=== PATIENT | female | born 1990 | race Caucasian/White ===

== ENCOUNTER 2016-09-27 12:29 | Emergency (ER) | payer OTHER ==
[2016-09-27 12:32] VITALS: BMI 22.1
--- NOTE | 2016-09-27 13:11 | PDOC ---
Attending Attestation - Resident Resident Name: Codie Schneider - ED Attending Attestation I have performed the following: I have examined & evaluated the patient, The case was reviewed & discussed with the resident, I agree w/resident's findings & plan, Exceptions are as noted - HPI HPI: 09/27/16 13:11 26y F hx of unclera cardiac history (had fu with peds cardiology when she was young) presents with L sided chest pain that is worse when she lifts her L arm, the pain also is worse when she takes a deep breath. Pt deenies any sob, hemoptysis, leg swelling, calf pain, coughing, EMERSON or worsening of CP on exertion. Pt also notes the pain seems worse when she is reclined. GENERAL: The patient is awake, alert, and fully oriented, Nontoxic - in no acute distress. HEAD: Normocephalic, atraumatic. EYES: extraocular movements intact, sclera anicteric, conjunctiva clear. ENT: Normal voice, Moist mucous membranes. NECK: Normal range of motion, supple LUNGS: Breath sounds equal, clear to auscultation bilaterally. No wheezes, no rhonchi, no rales. HEART: Regular rate and rhythm, normal S1 and S2 without murmur, rub or gallop. CHesT: Mild tenderness to L chest on palpation at the lateral insertion of pectorallis major ABDOMEN: Soft, nontender, normoactive bowel sounds. No guarding, no rebound. . No CVA tenderness EXTREMITIES: Normal range of motion, no edema. No clubbing or cyanosis. No cords, erythema, or tenderness. NEUROLOGICAL: No facial assymetry, Normal speech, PSYCH: Normal mood, normal affect. SKIN: Warm, Dry, normal turgor, consider MSK no signs of pericarditis via EKG will reach out to cardiology from [facility] for her cardiac history - Physicial Exam PE: 09/29/16 16:06 see above - Medical Decision Making 09/29/16 16:06 see above Heart Score/ECG Review - ECG Impressions Comment:: 09/27/16 15:11 Twelve-lead EKG was performed and reviewed by me. There is normal sinus rhythm with a normal rate. Rate of 67 The axis is normal. The intervals are normal. There is normal R wave progression There are no ST or T wave abnormalities. Impression: Normal twelve-lead EKG
--- NOTE | 2016-09-27 13:13 | PDOC ---
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 Patient states that her pain began 2 days ago and has gotten worse over that time she states that the pain is mostly on her left side and radiates down her left arm she states that it hurts to lift her left arm and causes her more chest pain. She states that her chest pain is reproducible with a big breath or palpation. 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 She is currently at the end of her menstrual cycle. Endorses palpitations. Denies fevers, chills, recent illness, shortness of breath, recent trauma, OCP use, nausea, vomiting, diarrhea, frequency, urgency and dysuria. Past History - Travel Traveled outside of the country in the last 30 days: No Close contact w/someone who was outside of country & ill: No - Past Medical History Allergies/Adverse Reactions: Allergies Allergy/AdvReac Type Severity Reaction Status Date / Time No Known Allergies Allergy Verified 09/27/16 12:32 Home Medications: Ambulatory Orders Oxycodone HCl/Acetaminophen [Percocet 5-325 mg Tablet] 1 tab PO Q6H PRN #10 tablet MDD 4 09/27/16 Cardiac Disorders: Yes (CHILDHOOD CARDIAC VESSEL ABNORMAL) Other medical history: [facility] 09/23/2016 Comment:: 09/27/16 17:42 Hx of coronary AV fistula from the LAD to the main pulmonary artery - Psycho/Social/Smoking Cessation Hx Anxiety: No Suicidal Ideation: No Smoking History: Never smoked Hx Alcohol Use: Yes (SOCIAL) Drug/Substance Use Hx: No Substance Use Type: None Review of Systems - Review of Systems Able to Perform ROS?: No Is the patient limited Kyrgyz proficient: No Constitutional: No: Chills, Fever, Malaise, Weakness Respiratory: No: Cough, Shortness of Breath, Wheezing Cardiac (ROS): Yes: Chest Pain, Palpitations. No: Lightheadedness, Syncope, Chest Tightness ABD/GI: No: Diarrhea, Nausea, Vomiting Musculoskeletal: Yes: Muscle Pain (L chest) All Other Systems: Reviewed and Negative *Physical Exam - Vital Signs Last Vital Signs Temp Pulse Resp BP Pulse Ox 98.0 F 91 H 20 132/93 97 09/27/16 12:29 09/27/16 12:29 09/27/16 12:29 09/27/16 12:29 09/27/16 12:29 - Physical Exam Comments: 09/27/16 15:10 GENERAL: Well developed, well nourished. Awake and alert. No acute distress. HEENT: Normocephalic, atraumatic. PERRLA, EOMI. No conjunctival pallor. Sclera are non- icteric. Moist mucous membranes. Oropharynx is clear. NECK: Supple. Full ROM. No JVD. Carotid pulses 2+ and symmetric, without bruits. No thyromegaly. No lymphadenopathy. CARDIOVASCULAR: TTP of the L chest wall. Reproducable pain with inspiration. Regular rate and rhythm. No murmurs, rubs, or gallops. Distal pulses are 2+ and symmetric. PULMONARY: No evidence of respiratory distress. Lungs clear to auscultation bilaterally. No wheezing, rales or rhonchi. ABDOMINAL: Soft. Non-tender. Non-distended. No rebound or guarding. No organomegaly. Normoactive bowel sounds. MUSCULOSKELETAL Normal range of motion at all joints. No bony deformities or tenderness. No CVA tenderness. EXTREMITIES: No cyanosis. No clubbing. No edema. No calf tenderness. SKIN: Warm and dry. Normal capillary refill. No rashes. No jaundice. NEUROLOGICAL: Alert, awake, appropriate. Cranial nerves 2-12 intact. No deficits to light touch and temperature in face, upper extremities and lower extremities. No motor deficits in the in face, upper extremities and lower extremities. Normoreflexic in the upper and lower extremities. Normal speech. Toes are down- going bilaterally. Gait is normal without ataxia. PSYCHIATRIC: Cooperative. Good eye contact. Appropriate mood and affect. ED Treatment Course - LABORATORY CBC & Chemistry Diagram: 09/27/16 13:30 09/27/16 13:30 Medical Decision Making - Medical Decision Making 09/27/16 14:47 Pt. is a 26 y/o female with PMH of AV fistula of the LAD and pulmonary artery, who presents to the ED c/o left sided chest pain. Will r/o ACS at this time. Other possible dx includes pneumonia, costrochondritis Will obtain old medical records from her manager building in [facility]. Pt has no current manager building 1. CBC, CMP, Cardiac Labs, UA, Upregnancy 2. EKG, CXR 3. Torodol 4. Re-evaluate 09/27/16 16:40 Medical records received from [facility]. 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 States that fistulas are slow changing and probably not the source of her pain. As long as trop is negative, pt can go home with outpatient follow up. EKG: NSR rate 77 normal intervals, axis. No acute ST-T wave changes. Pt. still c/o pain. Will give morphine at this time. 09/27/16 17:06 Trop is negative. Pt. reporting relief of pain with morphine. Will discharge home with percocets and cardiology follow up *DC/Admit/Observation/Transfer Diagnosis at time of Disposition: Acute costochondritis - Discharge Dispostion Disposition: HOME Admit: No - Prescriptions Prescriptions: Oxycodone HCl/Acetaminophen [Percocet 5-325 mg Tablet] 1 tab PO Q6H PRN #10 tablet MDD 4 PRN Reason: Pain - Referrals Referrals: Kira Pierce MD [Primary Care Provider] - Minesh Leong MD [Staff Physician] - - Patient Instructions Printed Discharge Instructions: DI for Atypical Chest Pain Additional Instructions: Your testing was normal today. Her EKG was normal. This is most likely a strained muscle in her chest wall. Take ibuprofen 600 mg every 8 hours for one week. This medication with food. Your also prescribed Percocet. Take this medication as needed for breakthrough pain. Do not drive after taking this medication as it may make you sleepy. Follow up with the cardiology consult provided in your discharge packet within the week. Follow up with her primary care doctor within the week. Return to the emergency department if you have worsening chest pain, shortness of breath, palpitations, fevers, chills or any changes in your symptoms. - Post Discharge Activity Work/School Note: Back to Work
[2016-09-27] MEDS ORDERED: SODIUM CHLORIDE 1,000 ML IV STA (13:15)
[2016-09-27 13:40] LABS: BASOPHIL 0.3 % (0-2.0); EOSINOPHIL 0.4 % (0-4.5); MCH 29.7 pg (25.7-33.7); MCHC 33.4 g/dl (32.0-36.0); MEAN CELL VOLUME 88.8 fl (80-96); MEAN PLT VOLUME 7.8 fl (7.5-11.1); NEUTROPHILS 69.7 % (42.8-82.8); PLATELET COUNT 307 K/MM3 (134-434); RDW 14.3 % (11.6-15.6); WHITE BLOOD COUNT 7.3 K/mm3 (4.0-10.0)
[2016-09-27 14:09] LABS: ALBUMIN 4.3 g/dl (3.4-5.0); ANION GAP 5 (8-16); BILIRUBIN,TOTAL 1.2 mg/dL (0.2-1.0); CALCIUM 9.2 mg/dL (8.5-10.1); CO2 32 mmol/L (21-32); CREATININE 0.6 mg/dL (0.55-1.02); GLUCOSE,RANDOM 87 mg/dL (74-106); SGPT/ALT 23 U/L (12-78); TOT PROT 7.7 g/dl (6.4-8.2)
[2016-09-27 14:10] LABS: ALK PHOS 64 U/L (45-117)
[2016-09-27 14:15] LABS: MAGNESIUM 2.4 mg/dL (1.8-2.4); SGOT/AST 18 U/L (15-37)
[2016-09-27 14:31] LABS: URINE APPEARANCE CLEAR; URINE BILIRUBIN NEGATIVE (NEGATIVE); URINE BLOOD NEGATIVE (NEGATIVE); URINE COLOR LTYELLOW; URINE GLUCOSE (UA) NEGATIVE (NEGATIVE); URINE KETONE NEGATIVE (NEGATIVE); URINE LEUK ESTERASE NEGATIVE (NEGATIVE); URINE NITRITE NEGATIVE (NEGATIVE); URINE PROTEIN NEGATIVE (NEGATIVE); URINE UROBILINOGEN NEGATIVE mg/dL (0.2-1.0)
[2016-09-27] MEDS ORDERED: KETOROLAC TROMETHAMINE 30 MG/1 ML VIAL IVPUSH ONE (15:18)
[2016-09-27] MEDS ORDERED: KETOROLAC TROMETHAMINE 60 MG/2 ML VIAL ONE (15:42)
[2016-09-27] MEDS ORDERED: morphine CARPU-JECT 2 MG/1 ML DISP.SYRIN IVPUSH ONE ×2 (16:34→17:44)
[2016-09-27] MEDS ORDERED: morphine CARPU-JECT 2 MG/1 ML DISP.SYRIN ONE ×2 (16:53→17:57)
[2016-09-27 17:38] LABS: CPK 97 IU/L (26-192); TROPONIN I < 0.02 ng/ml (0.00-0.05)
[2016-09-27 19:46] VITALS: BP 128/82; PULSE 78; TEMP 98.8
--- NOTE | 2016-10-01 21:52 | EKG ---
Test Reason : Blood Pressure : / mmHG Vent. Rate : 067 BPM Atrial Rate : 067 BPM P-R Int : 118 ms QRS Dur : 086 ms QT Int : 384 ms P-R-T Axes : 045 060 039 degrees QTc Int : 405 ms NORMAL SINUS RHYTHM WITH SHORT OH NO PREVIOUS ECGS AVAILABLE Confirmed by ANA NEVES MD ([id number]) on 10/01/2016 9:51:52 PM Referred By: Confirmed By:ANA NEVES MD
== END 2016-09-27 19:00 | disposition home or self-care (01) ==
LOC: JER 12:29
DX: M94.0 Chondrocostal junction syndrome [Tietze] (principal)
CPT/HCPCS: 36415; 71020-TC; 80053; 81003; 83735; 84484; 84703; 85025; 93005; 93010; 99283-25

== ENCOUNTER 2018-04-22 12:08 | Emergency (ER) | payer SELFPAY ==
[2018-04-22 12:31] VITALS: BP 134/85; PULSE 118; TEMP 98.2; BMI 22.8
--- NOTE | 2018-04-22 13:03 | PDOC ---
History of Present Illness - General Chief Complaint: Cold Symptoms Stated Complaint: CHEST PAIN Time Seen by Provider: 04/22/18 12:32 - History of Present Illness Initial Comments: 04/22/18 12:59 28-year-old female with an underlying cardiac abnormality she is unsure of presents for evaluation of sinus congestion intermittent headache subjective fever and chest pain over the last few days which started after coughing episodes. Past History - Past Medical History Allergies/Adverse Reactions: Allergies Allergy/AdvReac Type Severity Reaction Status Date / Time No Known Allergies Allergy Verified 04/22/18 12:28 Home Medications: Ambulatory Orders Oxycodone HCl/Acetaminophen [Percocet 5-325 mg Tablet] 1 tab PO Q6H PRN #10 tablet MDD 4 09/27/16 Amox-Tr/K Cl [Augmentin - 875Mg Tablet] 1 tab PO BID #20 tablet 04/22/18 Budesonide [Rhinocort Allergy] 1 spray NS ONCE #1 spray.pump 04/22/18 Cardiac Disorders: Yes (CHILDHOOD CARDIAC VESSEL ABNORMAL) COPD: No - Immunization History Immunization Up to Date: Yes - Suicide/Smoking/Psychosocial Hx Smoking History: Never smoked Information on smoking cessation initiated: No Hx Alcohol Use: No Drug/Substance Use Hx: No Substance Use Type: None Review of Systems - Review of Systems Constitutional: Yes: Fever HEENTM: Yes: Nose Congestion Respiratory: Yes: Cough Cardiac (ROS): Yes: See HPI, Chest Pain Neurological: Yes: Headache *Physical Exam - Vital Signs Last Vital Signs Temp Pulse Resp BP Pulse Ox 98.2 F 118 H 16 134/85 99 04/22/18 12:28 04/22/18 12:28 04/22/18 12:28 04/22/18 12:28 04/22/18 12:28 - Physical Exam Comments: 04/22/18 13:01 HEAD: NC/AT tenderness over the frontal sinuses. EYES: Conjuntiva clear Ears: Canals and TM's normal NOSE: Clear discharge injected turbinates. THROAT: Moist mucous membrances, oral pharanx clear, uvula midline NECK: Supple without adenopathy CARDIAC: S1 S2 LUNGS: CTA Full and Equal breath sounds ABDOMEN: Soft NT ND MS: Full ROM in all joints without edema NEUROLOGIC: No gross sensory or motor deficits, NVID SKIN: Normal color and temperature no lesions or rashes Moderate Sedation - Procedure Monitoring Vital Signs: Procedure Monitoring Vital Signs Temperature 98.2 F 04/22/18 12:28 Pulse Rate 118 H 04/22/18 12:28 Respiratory Rate 16 04/22/18 12:28 Blood Pressure 134/85 04/22/18 12:28 O2 Sat by Pulse Oximetry (%) 99 04/22/18 12:28 Medical Decision Making - Medical Decision Making 04/22/18 13:02 EKG was reviewed with emergency room attending. We'll treat for bacterial sinusitis have patient follow-up with ENT. *DC/Admit/Observation/Transfer Diagnosis at time of Disposition: Sinusitis - Discharge Dispostion Disposition: HOME Condition at time of disposition: Stable Decision to Admit order: No - Prescriptions Prescriptions: Amox-Tr/K Cl [Augmentin - 875Mg Tablet] 1 tab PO BID #20 tablet Budesonide [Rhinocort Allergy] 1 spray NS ONCE #1 spray.pump - Referrals Referrals: Michael Kim MD [Staff Physician] - - Patient Instructions Printed Discharge Instructions: DI for Sinusitis, Sinusitis Additional Instructions: Please use the nasal spray and antibiotics as directed. Please finish the entire course of the antibiotics. Return to the emergency room should symptoms worsen follow-up with ear nose and throat doctor in 1-2 days for further evaluation and treatment options. - Post Discharge Activity
--- NOTE | 2018-04-24 12:07 | EKG ---
Test Reason : Blood Pressure : / mmHG Vent. Rate : 110 BPM Atrial Rate : 110 BPM P-R Int : 130 ms QRS Dur : 082 ms QT Int : 316 ms P-R-T Axes : 055 047 025 degrees QTc Int : 427 ms SINUS TACHYCARDIA POSSIBLE LEFT ATRIAL ENLARGEMENT BORDERLINE ECG WHEN COMPARED WITH ECG OF 27-SEP-2016 12:39, VENT. RATE HAS INCREASED BY 43 BPM Confirmed by SAM HOROWITZ MD ([id number]) on 04/24/2018 12:07:15 PM Referred By: Confirmed By:SAM HOROWITZ MD
== END 2018-04-22 13:21 | disposition home or self-care (01) ==
LOC: JERFT 12:08
DX: J01.90 Acute sinusitis, unspecified (principal)
CPT/HCPCS: 93005; 93010; 99281-25

== ENCOUNTER 2019-02-09 19:48 | Emergency (ER) | payer SELFPAY ==
[2019-02-09 20:07] VITALS: BP 121/78; PULSE 96; TEMP 98; BMI 22.1
--- NOTE | 2019-02-09 20:45 | PDOC ---
History of Present Illness - General Chief Complaint: Cold Symptoms Stated Complaint: COUGHING/FEVER/HEADACHE Time Seen by Provider: 02/09/19 20:10 History Source: Patient Exam Limitations: No Limitations - History of Present Illness Initial Comments: 02/09/19 20:41 Patient is a 28-year-old female who presents to the ED with complaint of body aches, subjective fever, headache and URI symptoms for the last 6 days. She has been taking TheraFlu which has been helping with her fever. She took TheraFlu about 2 hours ago which has helped. She denies any neck pain. She denies any known sick contacts. She did not get a flu shot this year. The patient states that she has a history of heart problems but is unsure of what kind. Past History - Past Medical History Allergies/Adverse Reactions: Allergies Allergy/AdvReac Type Severity Reaction Status Date / Time No Known Allergies Allergy Verified 02/09/19 20:32 Home Medications: Ambulatory Orders NK [No Known Home Medication] 02/09/19 Cardiac Disorders: Yes (CHILDHOOD CARDIAC VESSEL ABNORMAL) COPD: No - Immunization History Immunization Up to Date: Yes - Psycho Social/Smoking Cessation Hx Smoking History: Never smoked Hx Alcohol Use: No Drug/Substance Use Hx: No Substance Use Type: None Review of Systems - Review of Systems Comments:: 02/09/19 20:41 - Review of Systems Able to Perform ROS?: Yes Constitutional: No: Night Sweats, Weakness; Positive chills, positive subjective fever, positive loss of appetite HEENTM: No: Eye Pain, Vision changes, Ear Pain, Throat Pain, Throat Swelling, Mouth Pain, Difficulty Swallowing, positive nasal congestion Respiratory: No: Cough, Shortness of Breath, Wheezing, Sputum Production Cardiac (ROS): No: Chest Pain, Chest Tightness, Palpitations, Irregular Heart Beat, Edema ABD/GI: No: Nausea, Vomiting, Abdominal Pain, Diarrhea : No Dysuria, No Hematuria, No Frequency, No Urgency, No Vaginal Discharge/ Pain, No Penile Discharge/Pain Musculoskeletal: No: Back Pain, Joint Pain, Muscle Weakness, Neck Pain; positive muscle aches Integumentary: No: Lesions, Rash Neurological: No: Headache, Numbness, Tingling, Weakness, Speech Difficulties *Physical Exam - Vital Signs Last Vital Signs Temp Pulse Resp BP Pulse Ox 98 F 96 H 20 121/78 98 02/09/19 20:03 02/09/19 20:03 02/09/19 20:03 02/09/19 20:03 02/09/19 20:03 - Physical Exam 02/09/19 20:43 - Physical Exam General Appearance: Nourished, Appropriately Dressed; mild distress secondary to general unwell feeling HEENT: EOMI, Normal Voice, TMs Normal, No Pharyngeal Erythema, No Nasal Congestion, Hearing Grossly Normal, No TM Bulging. No Muffled/Hoarse voice, No Tonsillar Exudate, No Tonsillar Erythema, No TM Dullness, No TM Erythema; positive rhinorrhea Neck: Supple, No Lymphadenopathy (R), No Lymphadenopathy (L), No Rigidity, No Decreased range of motion Respiratory/Chest: Lungs Clear, Normal Breath Sounds. No Respiratory Distress, No Accessory Muscle Use Cardiovascular: Regular Rhythm, Regular Rate, S1, S2 Gastrointestinal/Abdominal: Normal Bowel Sounds, Soft. Non-tender Musculoskeletal: Normal Inspection. No Decreased Range of Motion Extremity: Normal Capillary Refill, Normal Inspection Integumentary: Normal Color, Dry. No Rash Neurologic: Fully Oriented, Alert, Normal Mood/Affect, Normal Response 02/09/19 20:44 ED Treatment Course - ADDITIONAL ORDERS Additional order review: 02/09/19 21:22 Laboratory Tests 02/09/19 20:40 Influenza A (Rapid) Negative Influenza B (Rapid) Positive A Medical Decision Making - Medical Decision Making 02/09/19 21:23 The patient is influenza B positive but since she is 5 days since her symptoms started she is not indicated for Tamiflu. She has been encouraged to increase her fluids and get plenty of rest. She should also take Tylenol or ibuprofen for fevers or body aches. She should follow-up with her primary doctor within 1 to 2 days for repeat evaluation. She has been made aware that the symptoms can last up to 2 weeks. She should return to the ED for any worsening symptoms such as high fevers, shaking chills, profuse vomiting or any other worsening symptoms. Discharge - Discharge Information Problems reviewed: Yes Clinical Impression/Diagnosis: Influenza B Condition: Stable Disposition: HOME - Follow up/Referral - Patient Discharge Instructions Patient Printed Discharge Instructions: DI for Influenza -- Adult Additional Instructions: You should get plenty of rest and drink plenty of fluids. Take Tylenol or ibuprofen for fevers or body aches. You should follow-up with your primary doctor within 1 to 2 days for repeat evaluation. Return to the emergency department for worsening high fevers, shaking chills, profuse vomiting or any other worsening symptoms. - Post Discharge Activity Work/Back to School Note: Back to Work
[2019-02-09] MEDS ORDERED: IBUPROFEN 600 MG TABLET (FP) PO ONE ×2 (21:25→21:27)
== END 2019-02-09 21:31 | disposition home or self-care (01) ==
LOC: JERFT 19:48
DX: J10.1 Influenza due to other identified influenza virus with other respiratory manifestations (principal)
CPT/HCPCS: 87804; 99281-25